=== PATIENT | male | born 1950 | race Two or more races ===

== ENCOUNTER 2022-05-28 17:19 | Emergency (ER) | payer OTHER ==
[~2022-05-28] VITALS: Ht 170.2 cm; Wt 81.8 kg
[2022-05-28 17:33] VITALS: BP 159/73
[2022-05-28] MEDS ORDERED: HYDROcodone/acetaminophen 5mg/325mg tablet PO ONE (22:45)
[2022-05-28] MEDS ORDERED: HYDR-3965 PO (22:52)
[2022-05-29] MEDS ORDERED: HYDR-3965 PO (22:19)
== END 2022-05-28 23:44 | disposition home or self-care (01) ==
LOC: ER 17:20
DX: S86.011A Strain of right Achilles tendon, initial encounter (principal); G89.29 Other chronic pain; M54.9 Dorsalgia, unspecified; Z79.899 Other long term (current) drug therapy; X58.XXXA Exposure to other specified factors, initial encounter; Y93.89 Activity, other specified; Y92.89 Other specified places as the place of occurrence of the external cause; Y99.8 Other external cause status
CPT/HCPCS: 29105; 73030; 99283; L3650